=== PATIENT | male | born 2000 | race Two or more races ===

== ENCOUNTER 2024-01-23 11:15 | Outpatient (OUT) | payer OTHER, SELFPAY ==
--- NOTE | 2024-01-23 11:48 | XR_ITS ---
[facility] [id number] Patient Name: RESHMA RM MRN: [id number] date: 2000 Sex: M Assigned Patient Location: [facility] Current Patient Location: Accession/Order Number: [id number] Exam Date: 01/23/2024 11:40 Report Date: 01/26/2024 07:25 At the request of: JASWANT MIRZA Procedure: XR lumbar spine min 4V EXAMINATION: XR lumbar spine min 4V HISTORY: Lumbar Radiculopathy M54.16 COMPARISON: No relevant comparison available. FINDINGS: BONES: Normal. No significant spondylosis, scoliosis, fracture, or visible bony lesion. DISC SPACES: Normal. No significant disc height narrowing, subluxation, or endplate abnormality. PARASPINOUS: Negative. No paraspinous abnormality is seen. OTHER: Negative. XR/XR lumbar spine min 4V IMPRESSION: No acute radiographic abnormality Electronically authenticated by: NAHID SEGURA Date: 01/26/2024 07:25
== END 2024-01-23 11:16 | disposition home or self-care (01) ==
PROVIDERS: PCP Family Medicine; Visit Provider Family Medicine
DX: M54.16 Radiculopathy, lumbar region (principal)
CPT/HCPCS: 72110